=== PATIENT | male | born 1950 | race Caucasian/White ===

== ENCOUNTER → 2017-07-24 | Outpatient (CLI) | payer OTHER ==
[~2017-07-24] MED LIST: AMLO10 PO; ATOR40TA PO; DOXA4 PO; FINA5 PO; Hydrochlorothia25 MG PO; LEVSOD125 PO; LISI5 PO; METF500 PO; OXYACE5T PO; PROM25 PO; SULI150 PO
[2017-07-24 13:09] LABS: BASOPHILS ABSOLUTE AUTO 0.06 K/mm3 (0.00-0.23); BASOPHILS PERCENT AUTO 1 % (0-2); EOSINOPHILS PERCENT AUTO 6 % (0-6); Hematocrit 42.8 % (37.0-53.0); Hemoglobin 14.9 g/dL (13.5-17.5); IMMATURE GRAN ABSOLUTE AUTO 0.03 K/mm3 (0.00-0.10); IMMATURE GRAN PERCENT AUTO 1 % (0-1); LYMPHOCYTES ABSOLUTE AUTO 1.14 K/mm3 (0.84-5.20); LYMPHOCYTES PERCENT AUTO 22 % (21-46); MONOCYTES ABSOLUTE AUTO 0.44 K/mm3 (0.16-1.47); MONOCYTES PERCENT AUTO 9 % (4-13); Mean Corpuscular HGB 29.9 pg (26.0-34.0); Mean Corpuscular HGB Conc 34.8 g/dL (31.5-36.5); Mean Corpuscular Volume 86 fL (80-100); Mean Platelet Volume 9.9 fL (9.1-12.4); NEUTROPHILS ABSOLUTE AUTO 3.13 K/mm3 (1.96-9.15); NEUTROPHILS PERCENT AUTO 61 % (41-73); Platelet Count 200 K/mm3 (150-400); RDW Coefficient Variation 13.8 % (11.7-14.2); RDW Standard Deviation 42.9 fL (35.1-46.3); Red Blood Cell Count 4.99 M/mm3 (4.30-5.90)
[2017-07-24 13:26] LABS: Alanine Aminotransfer (ALT/SGP 30 U/L (12-78); Albumin, Blood 3.7 g/dL (3.4-5.0); Alk Phos 84 U/L (40-126); Anion Gap 9 mmol/L (6-16); Aspartate Aminotrans (AST/SGOT 17 U/L (12-37); Bilirubin, Total 0.6 mg/dL (0.1-1.0); Blood Urea Nitrogen 11 mg/dL (8-24); CO2, Blood 29 mmol/L (21-32); Calcium, Blood 8.7 mg/dL (8.5-10.1); Chloride, Blood 107 mmol/L (98-108); Creatinine, Blood 0.92 mg/dL (0.60-1.20); Globulin, Blood 3.8 g/dL (2.2-4.0); Glomerular Filtration Rate >60 (60-); Glucose, Blood 120 mg/dL (70-99); Potassium, Blood 3.9 mmol/L (3.5-5.5); Sodium, Blood 145 mmol/L (136-145); Total Protein, Blood 7.5 g/dL (6.4-8.2); Troponin I <0.017 ng/mL (0.000-0.040)
[2017-07-24 14:26] LABS: Thyroid Stimulating Hormone 0.133 uIU/mL (0.360-4.800)
== END ==
LOC: LAB SHORT 13:05 → LAB EV 13:05
PROVIDERS: Physician Assistant
DX: R06.02 Shortness of breath (principal); R53.83 Other fatigue
CPT/HCPCS: 80053; 83880; 84443; 84484; 85025

== ENCOUNTER 2017-08-21 00:39 | Emergency (ER) | payer OTHER ==
[~2017-08-21] VITALS: Ht 182.9 cm; Wt 129.3 kg
== END 2017-08-21 01:10 | disposition left against medical advice (07) ==
LOC: ER 00:39
DX: Z53.21 Procedure and treatment not carried out due to patient leaving prior to being seen by health care provider (principal)

== ENCOUNTER 2017-10-31 21:00 | Emergency (ER) | payer OTHER ==
[~2017-10-31] VITALS: Ht 182.9 cm; Wt 129.3 kg
[2017-11-01] MEDS ORDERED: ATOR20 PO (15:29)
[2017-11-01] MEDS ORDERED: ASPI81CH PO (15:30)
[2017-11-01] MEDS ORDERED: DOXA4 PO (15:33)
[2017-11-01] MEDS ORDERED: SYNTHROID0.2 MG PO (15:33)
[2017-11-01] MEDS ORDERED: HYDRA25 PO (15:34)
[2017-11-01] MEDS ORDERED: ALBU90OI INH (15:34)
[2017-11-01] MEDS ORDERED: METO25ER PO (15:35)
== END 2017-10-31 21:19 | disposition left against medical advice (07) ==
LOC: ER 21:00
DX: Z53.21 Procedure and treatment not carried out due to patient leaving prior to being seen by health care provider (principal)

== ENCOUNTER 2017-11-02 02:34 | Day surgery (SDC) | payer OTHER ==
[2017-11-01 11:59] LABS: BASOPHILS ABSOLUTE AUTO 0.04 K/mm3 (0.00-0.23); BASOPHILS PERCENT AUTO 1 % (0-2); EOSINOPHILS ABSOLUTE AUTO 0.11 K/mm3 (0.00-0.68); EOSINOPHILS PERCENT AUTO 2 % (0-6); Hematocrit 43.6 % (37.0-53.0); Hemoglobin 14.5 g/dL (13.5-17.5); IMMATURE GRAN ABSOLUTE AUTO 0.03 K/mm3 (0.00-0.10); IMMATURE GRAN PERCENT AUTO 1 % (0-1); LYMPHOCYTES ABSOLUTE AUTO 1.23 K/mm3 (0.84-5.20); LYMPHOCYTES PERCENT AUTO 22 % (21-46); MONOCYTES ABSOLUTE AUTO 0.46 K/mm3 (0.16-1.47); MONOCYTES PERCENT AUTO 8 % (4-13); Mean Corpuscular HGB 29.1 pg (26.0-34.0); Mean Corpuscular HGB Conc 33.3 g/dL (31.5-36.5); Mean Corpuscular Volume 87 fL (80-100); NEUTROPHILS ABSOLUTE AUTO 3.67 K/mm3 (1.96-9.15); NEUTROPHILS PERCENT AUTO 66 % (41-73); Platelet Count 215 K/mm3 (150-400); RDW Coefficient Variation 13.5 % (11.7-14.2); RDW Standard Deviation 43.3 fL (35.1-46.3); Red Blood Cell Count 4.99 M/mm3 (4.30-5.90); White Blood Cell Count 5.54 K/mm3 (4.00-11.30)
[2017-11-01 12:05] LABS: Anion Gap 7 mmol/L (6-16); Blood Urea Nitrogen 15 mg/dL (8-24); Bun/Creatinine Ratio 17.7 (12.0-20.0); CO2, Blood 28 mmol/L (21-32); Calcium, Blood 8.6 mg/dL (8.5-10.1); Chloride, Blood 106 mmol/L (98-108); Creatinine, Blood 0.85 mg/dL (0.60-1.20); Glomerular Filtration Rate >60 (60-); Glucose, Blood 149 mg/dL (70-99); Potassium, Blood 3.6 mmol/L (3.5-5.5); Sodium, Blood 141 mmol/L (136-145)
[2017-11-01 12:11] LABS: International Normalized Ratio 0.99; Prothrombin Time Results 10.2 Sec (9.7-11.5)
[~2017-11-02] VITALS: Ht 177.8 cm; Wt 129.0 kg
[~2017-11-02 02:34] MED LIST changes: +ALBU90OI INH; +ASPI81CH PO; +ATOR20 PO; +HYDRA25 PO; +METO25ER PO; +SYNTHROID0.2 MG PO
== END 2017-11-02 11:38 | disposition home or self-care (01) ==
LOC: MHTC 02:34
PROVIDERS: Internal Medicine Cardiovascular Disease
PROC: B2111ZZ Fluoroscopy of Multiple Coronary Arteries using Low Osmolar Contrast (ICD-10-PCS; principal; 2017-11-02)
DX: R07.9 Chest pain, unspecified (principal); I25.10 Atherosclerotic heart disease of native coronary artery without angina pectoris; I77.1 Stricture of artery; I44.0 Atrioventricular block, first degree; I11.0 Hypertensive heart disease with heart failure; I25.5 Ischemic cardiomyopathy; I50.30 Unspecified diastolic (congestive) heart failure; E78.5 Hyperlipidemia, unspecified; E11.9 Type 2 diabetes mellitus without complications; E66.01 Morbid (severe) obesity due to excess calories; E03.9 Hypothyroidism, unspecified; T78.3XXA Angioneurotic edema, initial encounter; Z79.899 Other long term (current) drug therapy; Z79.84 Long term (current) use of oral hypoglycemic drugs; Z79.82 Long term (current) use of aspirin; Z88.8 Allergy status to other drugs, medicaments and biological substances; Z88.0 Allergy status to penicillin; Z88.1 Allergy status to other antibiotic agents
CPT/HCPCS: 36415; 80048; 85025; 85610; 93454; 99152; 99153; C1769; C1894; J0360; J1644; J2250; J3010; J7030; Q9967

== ENCOUNTER → 2018-09-20 | Outpatient (CLI) | payer OTHER | END | disposition home or self-care (01) | LOC: PLD 11:34 → LAB SHORT 11:34 | DX: D22.5 Melanocytic nevi of trunk (principal) | CPT/HCPCS: 88305 ==

== ENCOUNTER → 2018-09-27 | Outpatient (CLI) | payer OTHER | END | disposition home or self-care (01) | LOC: PLD 14:09 → LAB SHORT 14:09 | DX: D22.5 Melanocytic nevi of trunk (principal) | CPT/HCPCS: 88305 ==

== ENCOUNTER → 2019-01-16 | Outpatient (CLI) | payer OTHER ==
[2019-01-16 13:06] LABS: Protein, Urine Quantitative 20.3 mg/dL (0.0-11.9)
[2019-01-16 13:09] LABS: Microalbumin, Urine Quant. 59.6 mg/L (0.000-20.000)
== END | disposition home or self-care (01) ==
LOC: LAB SHORT 09:36 → LAB 09:36
PROVIDERS: Internal Medicine Nephrology
DX: N18.2 Chronic kidney disease, stage 2 (mild) (principal); D63.1 Anemia in chronic kidney disease; N25.81 Secondary hyperparathyroidism of renal origin; E55.9 Vitamin D deficiency, unspecified; E78.00 Pure hypercholesterolemia, unspecified; D51.8 Other vitamin B12 deficiency anemias; D52.8 Other folate deficiency anemias; D50.9 Iron deficiency anemia, unspecified; R76.9 Abnormal immunological finding in serum, unspecified; R94.5 Abnormal results of liver function studies; R94.6 Abnormal results of thyroid function studies
CPT/HCPCS: 81050; 82043; 82570; 84156

== ENCOUNTER 2019-05-07 09:26 | Day surgery (SDC) | payer OTHER ==
[~2019-05-07] VITALS: Ht 182.9 cm; Wt 126.5 kg
[~2019-05-07 09:26] MED LIST changes: +AMLODIPINE BESY10 MG PO; +Aspirin EC81 MG PO; +B-121000 MC3 PO; +CARV6.25 PO; +Ferrous Sulfat325 M2 PO
--- NOTE | 2019-05-07 10:20 | NUR ---
05/07/19 1021 Lety Kauffman 1018 5ML 4% LIDOCAINE WITH DUO NEBULIZER GIVEN PER DR. MARISABEL PINEDA.
--- NOTE | 2019-05-07 11:09 | NUR ---
05/07/19 1109 Lety Kauffman DESCENDING COLON POLYPS X3 BUT ONE WAS UNRETRIEVED. DR. RAMOS AWARE.
--- NOTE | 2019-05-07 11:53 | NUR ---
05/07/19 1153 Lety Kauffman PT. DENIES ANY PAIN. PT. DOES VERBALIZES FEELING A LITTLE HOARSE AFTER THE PROCEDURE BUT DENIES ANY SORETHROAT OR TROUBLE SWALLOWING. PT. INSTRUCTED THAT IF HIS HOARSENESS GETS ANY WORSE TO CALL
== END 2019-05-07 11:42 | disposition home or self-care (01) ==
LOC: ORSCSDS 09:26
PROVIDERS: Internal Medicine Gastroenterology
PROC: 3E0H8GC Introduction of Other Therapeutic Substance into Lower GI, Via Natural or Artificial Opening Endoscopic (ICD-10-PCS; principal; 2019-05-07 10:45)
PROC: 0DB58ZX Excision of Esophagus, Via Natural or Artificial Opening Endoscopic, Diagnostic (ICD-10-PCS; principal; 2019-05-07 10:45)
PROC: 0DB68ZX Excision of Stomach, Via Natural or Artificial Opening Endoscopic, Diagnostic (ICD-10-PCS; principal; 2019-05-07 10:45)
PROC: 0DBM8ZX Excision of Descending Colon, Via Natural or Artificial Opening Endoscopic, Diagnostic (ICD-10-PCS; principal; 2019-05-07 10:45)
PROC: 0DB98ZX Excision of Duodenum, Via Natural or Artificial Opening Endoscopic, Diagnostic (ICD-10-PCS; principal; 2019-05-07 10:45)
DX: D50.9 Iron deficiency anemia, unspecified (principal); R19.7 Diarrhea, unspecified; C18.6 Malignant neoplasm of descending colon; D12.4 Benign neoplasm of descending colon; K29.80 Duodenitis without bleeding; B37.81 Candidal esophagitis; K44.9 Diaphragmatic hernia without obstruction or gangrene; I12.9 Hypertensive chronic kidney disease with stage 1 through stage 4 chronic kidney disease, or unspecified chronic kidney disease; E11.22 Type 2 diabetes mellitus with diabetic chronic kidney disease; N18.9 Chronic kidney disease, unspecified; Z79.84 Long term (current) use of oral hypoglycemic drugs; G47.33 Obstructive sleep apnea (adult) (pediatric); Z79.899 Other long term (current) drug therapy; E66.01 Morbid (severe) obesity due to excess calories; Z68.37 Body mass index [BMI] 37.0-37.9, adult
CPT/HCPCS: 82947; 88305; 88342; J2001; J2704; J7120

== ENCOUNTER 2019-06-06 08:11 | Inpatient (IN) | payer OTHER ==
[~2019-06-06] VITALS: Ht 208.3 cm; Wt 134.4 kg
[2019-06-11] MEDS ORDERED: HYDRA50 PO (06:31)
--- NOTE | 2019-06-11 08:54 | NUR ---
Ambulatory in Day Surgery. Surgical site prepped with 2% Chlorhexidine cloth wipe. History, Chart, Medications and Allergies reviewed before start of procedure.Lungs clear T/O to Auscultation. Patient confirms NPO status and agrees with scheduled surgery. Pre-Op teaching done. Pt verbalizes understanding. Patient States Post-Procedure ride home has been arranged.
--- NOTE | 2019-06-11 15:57 | NUR ---
1530-DR. GARDNER NOTIFIED OF PTS NEED FOR OXYGEN. ALBUTEROL UDN GIVEN
--- NOTE | 2019-06-11 19:21 | NUR ---
PCU DAYSHIFT SUMMARY PATIENT ALERT AND ORIENTED X4. PATIENT TITRATED FROM 3 LPM OXYMIZER TO ROOM AIR WHILE AWAKE. PATIENT ON HOME CPAP WHILE SLEEPING AND CONTINUOUS BIOX IN PLACE. ABD DISTENDED, ABD BINDER IN PLACE - NO S/SX OF BLEEDING NOTED AT THIS TIME. PATIENT IN SINUS ELICEO WITH HR 45-55 - NOTIFIED PROVIDER DREW AHN BEYOND THAT. CALL LIGHT W/I REACH, SAPHIRE RN OBGYN EPIDURAL CLEARED WITH NOC SHIFT CIERRA FLORES. NO ACUTE DISTRESS. REPORTED GIVEN AT BEDSIDE TO MARK NORTON.
[2019-06-12 04:30] LABS: BASOPHILS ABSOLUTE AUTO 0.01 K/mm3 (0.00-0.23); BASOPHILS PERCENT AUTO 0 % (0-2); EOSINOPHILS PERCENT AUTO 0 % (0-6); Hematocrit 31.4 % (37.0-53.0); IMMATURE GRAN ABSOLUTE AUTO 0.02 K/mm3 (0.00-0.10); IMMATURE GRAN PERCENT AUTO 0 % (0-1); LYMPHOCYTES ABSOLUTE AUTO 0.67 K/mm3 (0.84-5.20); LYMPHOCYTES PERCENT AUTO 7 % (21-46); MONOCYTES ABSOLUTE AUTO 0.81 K/mm3 (0.16-1.47); MONOCYTES PERCENT AUTO 8 % (4-13); Mean Corpuscular HGB 27.7 pg (26.0-34.0); Mean Corpuscular HGB Conc 31.8 g/dL (31.5-36.5); Mean Corpuscular Volume 87 fL (80-100); Mean Platelet Volume 9.8 fL (9.1-12.4); NEUTROPHILS ABSOLUTE AUTO 8.19 K/mm3 (1.96-9.15); NEUTROPHILS PERCENT AUTO 84 % (41-73); Platelet Count 189 K/mm3 (150-400); RDW Coefficient Variation 14.6 % (11.7-14.2); RDW Standard Deviation 46.1 fL (35.1-46.3); Red Blood Cell Count 3.61 M/mm3 (4.30-5.90)
[2019-06-12 04:44] LABS: Anion Gap 5 mmol/L (6-16); Blood Urea Nitrogen 19 mg/dL (8-24); Bun/Creatinine Ratio 17.6 (12.0-20.0); CO2, Blood 28 mmol/L (21-32); Calcium, Blood 7.4 mg/dL (8.5-10.1); Chloride, Blood 111 mmol/L (98-108); Creatinine, Blood 1.08 mg/dL (0.60-1.20); Glomerular Filtration Rate >60 (60-); Glucose, Blood 132 mg/dL (70-99); Potassium, Blood 3.4 mmol/L (3.5-5.5); Sodium, Blood 144 mmol/L (136-145)
--- NOTE | 2019-06-12 07:43 | NUR ---
shift summary: Epidural verified at each handoff with secound rn, patient tolerated well and was not sure if the numb sensation in his feet was worse or his normal baseline. Patient VSS, checked q1hr per protocol, alert and oriented and abdominal wound looks unchanged from beginning of shift
--- NOTE | 2019-06-12 08:33 | NUR ---
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
--- NOTE | 2019-06-12 11:22 | NUR ---
PT IS BEING MOVED TO SURGICAL FLOOR VIA BED, WITH SURGICAL NURSE IN ATTENDENCE. REPORT TO DIEGO NORTON. ALL BELONGINGS WENT WITH HIM.
--- NOTE | 2019-06-12 11:41 | NUR ---
recvd report from previous RN Mindy, pt transferred to unit on own bed, a/0 x 4, pleasant/cooperative. in epidural assessment, full feeling and function BLE, rates pain at 5/10, epidural with bolus CAMP COOK. Pt denies n/v.
--- NOTE | 2019-06-12 14:35 | NUR ---
DR JORGE ROUNDING ON PT
--- NOTE | 2019-06-12 16:58 | NUR ---
shift summary: vss, no acute changes, epidural intact, pt remained a/o x 4, pleasant/cooperative, reports pain controlled per epidural and PC bolus so that he may rest. pt tolerating clear liquid diet, no n/v. RT has been in rounding with pt. family has visited, dr kraus rounded. pt remains pleasant/cooperative. midline incision with JUAN c/d/i, no new drainage.
--- NOTE | 2019-06-13 02:30 | NUR ---
ASSUMED CARE OF PT. PT SLEEPING IN BED, RESP E/U, NO DISTRESS NOTED. PLAN TO MONITOR AND TX PER ORDERS.
--- NOTE | 2019-06-13 03:20 | NUR ---
REPORT GIVEN TO VERITO NORTON AT THIS TIME.
--- NOTE | 2019-06-13 05:20 | NUR ---
POD 2 S/P COLECTOMY. PT VSS, DRESSINGS INTACT, SOME SHADOWING PRESENT ON JUAN DRESSING, SX AND SEAL MAINTAINED, ABD BINDER IN PLACE. PT DENIED N/T, REFUSED EPIDURAL ASSESSMENT THIS AM. PT REP PAIN 4-5/10 WHEN FIRST WOKE UP, IS USING HYDROPULPER BUTTONG PRN. PT ISAAK CL PO, HAD NO C/O N/V, REP NO FLATUS YET. CALL LIGHT IN REACH, WILL CONT TO MONITOR UNTIL REP GIVEN TO ONCOMING RN.
[2019-06-13 05:30] LABS: BASOPHILS ABSOLUTE AUTO 0.03 K/mm3 (0.00-0.23); BASOPHILS PERCENT AUTO 0 % (0-2); EOSINOPHILS ABSOLUTE AUTO 0.03 K/mm3 (0.00-0.68); EOSINOPHILS PERCENT AUTO 0 % (0-6); Hematocrit 28.7 % (37.0-53.0); IMMATURE GRAN ABSOLUTE AUTO 0.03 K/mm3 (0.00-0.10); IMMATURE GRAN PERCENT AUTO 0 % (0-1); LYMPHOCYTES PERCENT AUTO 13 % (21-46); MONOCYTES ABSOLUTE AUTO 0.67 K/mm3 (0.16-1.47); MONOCYTES PERCENT AUTO 10 % (4-13); Mean Corpuscular HGB 27.6 pg (26.0-34.0); Mean Corpuscular HGB Conc 31.4 g/dL (31.5-36.5); Mean Corpuscular Volume 88 fL (80-100); Mean Platelet Volume 9.8 fL (9.1-12.4); NEUTROPHILS ABSOLUTE AUTO 5.28 K/mm3 (1.96-9.15); NEUTROPHILS PERCENT AUTO 76 % (41-73); Platelet Count 174 K/mm3 (150-400); RDW Coefficient Variation 14.5 % (11.7-14.2); Red Blood Cell Count 3.26 M/mm3 (4.30-5.90); White Blood Cell Count 6.94 K/mm3 (4.00-11.30)
[2019-06-13 06:12] LABS: Alanine Aminotransfer (ALT/SGP 19 U/L (12-78); Albumin, Blood 2.3 g/dL (3.4-5.0); Albumin/Globulin Ratio 0.8 (0.8-1.8); Alk Phos 53 U/L (50-136); Anion Gap 6 mmol/L (6-16); Aspartate Aminotrans (AST/SGOT 21 U/L (12-37); Bilirubin, Total 0.5 mg/dL (0.1-1.0); Blood Urea Nitrogen 10 mg/dL (8-24); Bun/Creatinine Ratio 12.2 (12.0-20.0); CO2, Blood 26 mmol/L (21-32); Calcium, Blood 7.8 mg/dL (8.5-10.1); Chloride, Blood 109 mmol/L (98-108); Creatinine, Blood 0.82 mg/dL (0.60-1.20); Globulin, Blood 2.9 g/dL (2.2-4.0); Glomerular Filtration Rate >60 (60-); Glucose, Blood 114 mg/dL (70-99); Magnesium, Blood 2.1 mg/dL (1.6-2.4); Phosphorus, Blood 2.8 mg/dL (2.5-4.9); Potassium, Blood 3.2 mmol/L (3.5-5.5); Sodium, Blood 141 mmol/L (136-145); Total Protein, Blood 5.2 g/dL (6.4-8.2)
--- NOTE | 2019-06-13 09:00 | NUR ---
PT PLEASANT COOP TALKATIVE/ STATES PAIN MANAGED WITH AVAIL MEDS TO SATISFACTION. PAIN HOVERS AT 6, WHICH IS OKAY. USES EPIDURAL PUMP FOR EXTRA BOLUS DESIRES. EPIDURAL PUMP IN LOW BACK CDI. LINE ATTACHED INTACT. WOUND VAC JUAN ATTACHED. FUNCTIONING. ABD PUNCTURE SITES CDI NO DRAINAGE THROUGH GAUZE . H/R REG, NO MURMER NOTED. PER TELE NSR 1' BLOCK, RATE 60. LUNGS CLEAR, RESP EASY, UNLABORED. ON.R.A. BT X4 LAST BM 3 DAYS. VOIDS ROBLES CATH. DRAINING YELLOW FLUID. SCROTAL SAC SWELLING. PT STATSE NORMAL. BED IN LOW POSITION,CA LL LITE IN [facility], CALLS APPROP
--- NOTE | 2019-06-13 10:15 | NUR ---
06/13/19 1015 Kristin Peck VERIFICATIONS: EDIT CHART.
--- NOTE | 2019-06-13 17:56 | NUR ---
PT PLEASANT TODAY. CAME IN AND REMOVED GAUZE DRESSINGS ON ABD. KEEPING JUAN WOUNDDRAIN IN PLACE. PT HAS AMBULATED TO BATHROOM SEVERAL TIMES SBA. STATES SLOWLY IMPROVING. A LITTLE WEEK AT THIS TIME. IN RECLINER CHAIR AT THIS TIME. WOUND VAC INTACT. ABD SITES CDI. EATING DINNER AT THIS TIME. BED IN LOW POSITION, CALL LITE IN REACH, CALLS APPROP
[2019-06-14 05:26] LABS: BASOPHILS ABSOLUTE AUTO 0.03 K/mm3 (0.00-0.23); BASOPHILS PERCENT AUTO 1 % (0-2); EOSINOPHILS ABSOLUTE AUTO 0.22 K/mm3 (0.00-0.68); EOSINOPHILS PERCENT AUTO 4 % (0-6); Hematocrit 29.7 % (37.0-53.0); Hemoglobin 9.5 g/dL (13.5-17.5); IMMATURE GRAN ABSOLUTE AUTO 0.04 K/mm3 (0.00-0.10); IMMATURE GRAN PERCENT AUTO 1 % (0-1); LYMPHOCYTES ABSOLUTE AUTO 1.04 K/mm3 (0.84-5.20); LYMPHOCYTES PERCENT AUTO 19 % (21-46); MONOCYTES ABSOLUTE AUTO 0.52 K/mm3 (0.16-1.47); MONOCYTES PERCENT AUTO 9 % (4-13); Mean Corpuscular HGB 28.2 pg (26.0-34.0); Mean Corpuscular Volume 88 fL (80-100); Mean Platelet Volume 9.2 fL (9.1-12.4); NEUTROPHILS ABSOLUTE AUTO 3.75 K/mm3 (1.96-9.15); NEUTROPHILS PERCENT AUTO 67 % (41-73); Platelet Count 178 K/mm3 (150-400); RDW Coefficient Variation 14.2 % (11.7-14.2); RDW Standard Deviation 45.6 fL (35.1-46.3); Red Blood Cell Count 3.37 M/mm3 (4.30-5.90)
[2019-06-14 05:53] LABS: Anion Gap 6 mmol/L (6-16); Blood Urea Nitrogen 7 mg/dL (8-24); Bun/Creatinine Ratio 9.1 (12.0-20.0); CO2, Blood 27 mmol/L (21-32); Calcium, Blood 7.9 mg/dL (8.5-10.1); Chloride, Blood 110 mmol/L (98-108); Creatinine, Blood 0.77 mg/dL (0.60-1.20); Glomerular Filtration Rate >60 (60-); Glucose, Blood 105 mg/dL (70-99); Potassium, Blood 3.5 mmol/L (3.5-5.5); Sodium, Blood 143 mmol/L (136-145)
--- NOTE | 2019-06-14 07:22 | NUR ---
SHIFT SUMMARY PT IS A/O X4, STANDBY ASSIST TO AMBULATE. PASSING FLATUS, NO BM THIS SHIFT. ABD BINDER HAS BEEN IN PLACE. EPIDURAL IS MANAGING PAIN WELL. ROBLES IN PLACE, OFF FLOOR, DRAINING. TOLERATING PO INTAKE WELL. ASSISTED WITH ADL'S PRN.
[2019-06-14] MEDS ORDERED: HYDR1TAB94 PO (12:43)
--- NOTE | 2019-06-14 17:33 | NUR ---
summarY SPOKE WITH DR MICHAELS REGARDING PATIENTS BP AND HR AND NEW ORDERS RECEIVED. ABD DRESSING DRY AND INTACT, ABD BINDER IN PLACE. PT DENIES NEED FOR PAIN MEDS, REPORTS PAIN IS CURRENTLY 2/10. PATIENT HAS VOIDED SEVERAL TIMES AFTER ROBLES REMOVED. ISAAK SMALL AMOUNTS ADA DIET WITHOUT NAUSEA
--- NOTE | 2019-06-15 04:12 | NUR ---
POD 4 [id number], VSS. NO DRAINAGE NOTED ON ABD PAD MIDLINE. LAP SITES CDI. PT IND IN ROOM, VOIDING DURING SHIFT. DENIES NAUSEA. MEDICATED FOR PAIN X1. PT PASSING GAS. ABDOMINAL BINDER IN PLACE. TOLERATING PO WELL. PLAN TO DISCHARGE HOME TODAY.
[2019-06-15 05:15] LABS: BASOPHILS ABSOLUTE AUTO 0.04 K/mm3 (0.00-0.23); BASOPHILS PERCENT AUTO 1 % (0-2); EOSINOPHILS ABSOLUTE AUTO 0.32 K/mm3 (0.00-0.68); EOSINOPHILS PERCENT AUTO 6 % (0-6); Hematocrit 30.7 % (37.0-53.0); Hemoglobin 10.1 g/dL (13.5-17.5); IMMATURE GRAN ABSOLUTE AUTO 0.05 K/mm3 (0.00-0.10); IMMATURE GRAN PERCENT AUTO 1 % (0-1); LYMPHOCYTES ABSOLUTE AUTO 1.02 K/mm3 (0.84-5.20); LYMPHOCYTES PERCENT AUTO 20 % (21-46); MONOCYTES ABSOLUTE AUTO 0.45 K/mm3 (0.16-1.47); MONOCYTES PERCENT AUTO 9 % (4-13); Mean Corpuscular HGB 28.3 pg (26.0-34.0); Mean Corpuscular HGB Conc 32.9 g/dL (31.5-36.5); Mean Corpuscular Volume 86 fL (80-100); Mean Platelet Volume 9.2 fL (9.1-12.4); NEUTROPHILS ABSOLUTE AUTO 3.27 K/mm3 (1.96-9.15); NEUTROPHILS PERCENT AUTO 64 % (41-73); Platelet Count 216 K/mm3 (150-400); RDW Coefficient Variation 13.9 % (11.7-14.2); RDW Standard Deviation 43.5 fL (35.1-46.3); Red Blood Cell Count 3.57 M/mm3 (4.30-5.90); White Blood Cell Count 5.15 K/mm3 (4.00-11.30)
[2019-06-15 05:37] LABS: Anion Gap 5 mmol/L (6-16); Blood Urea Nitrogen 6 mg/dL (8-24); Bun/Creatinine Ratio 8.6 (12.0-20.0); CO2, Blood 29 mmol/L (21-32); Calcium, Blood 8.1 mg/dL (8.5-10.1); Chloride, Blood 109 mmol/L (98-108); Glomerular Filtration Rate >60 (60-); Glucose, Blood 110 mg/dL (70-99); Potassium, Blood 3.2 mmol/L (3.5-5.5); Sodium, Blood 143 mmol/L (136-145)
[2019-06-15] MEDS ORDERED: HYDCHL25 PO (10:41)
--- NOTE | 2019-06-15 12:19 | NUR ---
DISCHARGE SUMMARY: PATIENT WAS ALERT AND ORIENTATED X4. PATIENT'S VITALS WERE STABLE UPON LEAVING. PATIENT HAD NO PROBLEM MOVING FROM BED TO WHEELCHAIR BY HIMSELF. HE WAS EDUCATED ON THE TWO NEW MEDICATIONS THAT HE WILL BE TAKING AT HOME. HE VERBALIZED HIS UNDERSTANDING OF THESE TWO NEW MEDICATIONS. WE WERE ABLE TO CHANGE HIS ABD DRESSING BEFORE HE WAS DISCHARGED. THE NEW DRESSING WAS CLEAN AND INTACT UPON LEAVING. WE SENT HIM HOME WITH MORE DRESSINGS THAT INCLUDED INSTUCTIONS ON HOW TO CHANGE IT AT HOME. PATIENT WAS ABLE TO AMBULATE AROUND THE ROOM WITHOUT AIDE. HE DIDN'T COMPLAIN OF PAIN BEFORE LEAVING WITH FAMILY.
== END 2019-06-15 11:10 | disposition home or self-care (01) | DRG 330 ==
LOC: PCU 06-11 05:49 → SURS 06-11 05:49 → PRE IP 06-11 07:30 → PCU 06-11 16:38 → SURS 06-12 11:09
PROVIDERS: Family Medicine; Hospitalist; ADMIT Surgery
PROC: 00HU33Z Insertion of Infusion Device into Spinal Canal, Percutaneous Approach (ICD-10-PCS; 2019-06-11)
PROC: 0DBL0ZZ Excision of Transverse Colon, Open Approach (ICD-10-PCS; principal; 2019-06-11 07:30)
PROC: 0WPF0JZ Removal of Synthetic Substitute from Abdominal Wall, Open Approach (ICD-10-PCS; 2019-06-11 07:30)
PROC: 0DNU4ZZ Release Omentum, Percutaneous Endoscopic Approach (ICD-10-PCS; 2019-06-11 07:30)
DX: C18.4 Malignant neoplasm of transverse colon (principal); J95.89 Other postprocedural complications and disorders of respiratory system, not elsewhere classified; E78.5 Hyperlipidemia, unspecified; I10 Essential (primary) hypertension; J45.909 Unspecified asthma, uncomplicated; G47.33 Obstructive sleep apnea (adult) (pediatric); E03.9 Hypothyroidism, unspecified; K66.0 Peritoneal adhesions (postprocedural) (postinfection)
CPT/HCPCS: 36415; 80048; 80053; 82947; 83735; 84100; 85025; 88300; 88309; 94640; 94667; 94762; A9270-GY; J0461; J0694; J1100; J1650; J2250; J2370; J2405; J2704; J2710; J3010; J7120

== ENCOUNTER 2019-06-28 07:19 | Day surgery (SDC) | payer OTHER ==
[~2019-06-28] VITALS: Ht 182.9 cm; Wt 129.4 kg
[~2019-06-28 07:19] MED LIST changes: +HYDCHL25 PO; +HYDR1TAB94 PO; +HYDRA50 PO
--- NOTE | 2019-06-28 09:23 | NUR ---
06/28/19 0923 LOYDA GOMEZ *LATE ENTRY* PATIENT UPDATED AT 0820 THAT OPERATING ROOM FOR DR. JORGE IS RUNNING LATE AND SURGERY WILL BE DELAYED.
--- NOTE | 2019-06-28 11:21 | NUR ---
06/28/19 1121 KRISTY PAGE VSS ON O2 VIA FACE TENT IN PACU. ORAL AIRWAY REMOVED AT 1105, NASAL AIRWAY REMOVED AT 1118. PATIENT TOLERATED WELL. DENIES PAIN/NAUSEA.
--- NOTE | 2019-06-28 11:44 | NUR ---
06/28/19 1144 Gricelda Rogers PT IS IN THE BED AT THIS TIME AWAITING X-RAY RESULTS OF PLACEMENT. AT BEDSIDE. WARM BLANKETS PROVIDED. CALL LIGHT IN REACH. VSS.
== END 2019-06-28 12:30 | disposition home or self-care (01) ==
LOC: ORSCSDS 07:19
PROVIDERS: Surgery
PROC: B543ZZA Ultrasonography of Right Jugular Veins, Guidance (ICD-10-PCS; principal; 2019-06-28 08:30)
PROC: 05HM33Z Insertion of Infusion Device into Right Internal Jugular Vein, Percutaneous Approach (ICD-10-PCS; principal; 2019-06-28 08:30)
DX: C18.5 Malignant neoplasm of splenic flexure (principal); I10 Essential (primary) hypertension; E11.9 Type 2 diabetes mellitus without complications; Z79.899 Other long term (current) drug therapy; Z79.84 Long term (current) use of oral hypoglycemic drugs; E78.5 Hyperlipidemia, unspecified; E66.01 Morbid (severe) obesity due to excess calories; Z68.38 Body mass index [BMI] 38.0-38.9, adult
CPT/HCPCS: 77001; 82947; C1788; J0690; J1642; J2001; J2250; J2405; J3010; J7120

== ENCOUNTER → 2019-10-01 | Outpatient (CLI) | payer OTHER | END | disposition home or self-care (01) | LOC: LAB SHORT 12:51 → LAB 12:51 | DX: L03.032 Cellulitis of left toe (principal); L02.612 Cutaneous abscess of left foot; L97.521 Non-pressure chronic ulcer of other part of left foot limited to breakdown of skin | CPT/HCPCS: 87070; 87077; 87186; 87205 ==

== ENCOUNTER → 2020-01-16 | Outpatient (CLI) | payer OTHER ==
[2020-01-16 14:48] LABS: Creatinine, Urine Random 60.1 mg/dL (27.00-270.00)
[2020-01-16 14:50] LABS: Microalb/Creat Ratio UR, Rand 149.418 mg/g (0.000-30.000); Microalbumin, Random Urine 89.8 mg/L (0.000-20.000)
== END | disposition home or self-care (01) ==
LOC: LAB 11:59 → LAB SHORT 11:59
PROVIDERS: Internal Medicine Endocrinology, Diabetes & Metabolism
DX: E55.9 Vitamin D deficiency, unspecified (principal); E89.0 Postprocedural hypothyroidism; R53.82 Chronic fatigue, unspecified; R73.9 Hyperglycemia, unspecified; Z85.850 Personal history of malignant neoplasm of thyroid
CPT/HCPCS: 82043; 82570

== ENCOUNTER 2020-05-20 00:29 | Emergency (ER) | payer OTHER ==
[~2020-05-20] VITALS: Ht 182.9 cm; Wt 122.5 kg
[2020-05-20] MEDS ORDERED: POTA10T PO (01:15)
[2020-05-20] MEDS ORDERED: LOSARTAN POTAS100 M1 PO (01:15)
[2020-05-20] MEDS ORDERED: GLIP5ER PO (01:16)
[2020-05-20] MEDS ORDERED: ROSUVASTATIN CA20 MG PO (01:16)
== END 2020-05-20 02:15 | disposition home or self-care (01) ==
LOC: ER 00:29
DX: I10 Essential (primary) hypertension (principal); E11.9 Type 2 diabetes mellitus without complications; E78.5 Hyperlipidemia, unspecified; Z79.899 Other long term (current) drug therapy; Z88.0 Allergy status to penicillin; Z88.8 Allergy status to other drugs, medicaments and biological substances; Z88.1 Allergy status to other antibiotic agents; Z88.5 Allergy status to narcotic agent; Z79.84 Long term (current) use of oral hypoglycemic drugs
CPT/HCPCS: 99283

== ENCOUNTER → 2020-06-15 | Outpatient (CLI) | payer OTHER ==
[~2020-06-15] MED LIST changes: +GLIP5ER PO; +LOSARTAN POTAS100 M1 PO; +POTA10T PO; +ROSUVASTATIN CA20 MG PO; +XARELTO2.5 M1
== END | disposition home or self-care (01) ==
LOC: LAB SHORT 14:59 → PLD 14:59
DX: D22.61 Melanocytic nevi of right upper limb, including shoulder (principal)
CPT/HCPCS: 88305

== ENCOUNTER → 2020-06-18 | Outpatient (CLI) | payer OTHER | END | disposition home or self-care (01) | LOC: LAB 11:18 → LAB SHORT 11:18 | DX: D22.61 Melanocytic nevi of right upper limb, including shoulder (principal) | CPT/HCPCS: 88305 ==

== ENCOUNTER 2020-07-02 09:26 | Day surgery (SDC) | payer OTHER ==
[~2020-07-02] VITALS: Ht 182.9 cm; Wt 125.4 kg
[~2020-07-02 09:26] MED LIST changes: -XARELTO2.5 M1
[2020-07-02] MEDS ORDERED: XARELTO2.5 M1 (09:57)
== END 2020-07-02 13:11 | disposition home or self-care (01) ==
LOC: ORSCSDS 09:26
PROVIDERS: Surgery
PROC: 0DBL8ZX Excision of Transverse Colon, Via Natural or Artificial Opening Endoscopic, Diagnostic (ICD-10-PCS; principal; 2020-07-02 10:45)
PROC: 0DBH8ZX Excision of Cecum, Via Natural or Artificial Opening Endoscopic, Diagnostic (ICD-10-PCS; principal; 2020-07-02 10:45)
PROC: 0DBK8ZX Excision of Ascending Colon, Via Natural or Artificial Opening Endoscopic, Diagnostic (ICD-10-PCS; principal; 2020-07-02 10:45)
DX: Z85.038 Personal history of other malignant neoplasm of large intestine (principal); D12.0 Benign neoplasm of cecum; D12.2 Benign neoplasm of ascending colon; D12.3 Benign neoplasm of transverse colon; K57.30 Diverticulosis of large intestine without perforation or abscess without bleeding; E11.9 Type 2 diabetes mellitus without complications; E78.5 Hyperlipidemia, unspecified; G47.33 Obstructive sleep apnea (adult) (pediatric); I10 Essential (primary) hypertension; I48.91 Unspecified atrial fibrillation; Z79.01 Long term (current) use of anticoagulants; Z79.84 Long term (current) use of oral hypoglycemic drugs
CPT/HCPCS: 82947; 88305; J2704; J7120

== ENCOUNTER → 2021-04-06 | Outpatient (CLI) | payer OTHER ==
[~2021-04-06] MED LIST changes: +XARELTO2.5 M1
== END | disposition home or self-care (01) ==
LOC: LAB SHORT 12:49
DX: T81.89XA Other complications of procedures, not elsewhere classified, initial encounter (principal); L03.90 Cellulitis, unspecified
CPT/HCPCS: 87070; 87075; 87205